=== PATIENT | male | born 1995 | race Caucasian/White ===

== ENCOUNTER 2022-10-15 05:52 | Observation (INO) | payer OTHER ==
[2022-10-13 12:22] VITALS: BMI 28.0
[2022-10-15 06:50] LABS: #Basophils 0.1 thou/uL (0.0-0.2); #Eosinphils 0.2 thou/uL (0.0-0.7); #Lymphocytes 3.3 thou/uL (1.20-3.40); #Neutrophils 2.5 thou/uL (1.40-6.50); %Basophils 0.7 % (0.0-1.0); %Eosinophils 2.2 % (0.0-10.0); %Lymphocytes 47.1 % (21.0-51.0); %Monocytes 14.2 % (0.0-10.0); %Neutrophils 35.7 % (42.0-75.0); Hemoglobin 16.1 g/dL (14.0-18.0); Mean Corpuscular HGB CONC 32.8 g/dL (32.0-36.0); Mean Corpuscular Hemoglobin 31.8 pg (27.0-31.0); Mean Corpuscular Volume 97.1 fl (78.0-98.0); Platelet Count 249 10x3/uL (130-400); RBC Distribution Width 11.1 % (11.5-14.5); Red Blood Cell (RBC) Count 5.08 mill/uL (4.70-6.10); White Blood Cell (WBC) Count 7.1 10x3/uL (4.8-10.8)
[2022-10-15] MEDS ORDERED: Midazolam HCl 2 mg/2 ml Vial ONE (06:57)
[2022-10-15] MEDS ORDERED: Lidocaine 1% (PF) 30 ML VIAL ONE (06:57)
[2022-10-15] MEDS ORDERED: Bupivacaine PF 0.5% 30 ML VIAL ONE (06:57)
[2022-10-15] MEDS ORDERED: FENTANYL 50 MCG/ML 1 ML VIAL ONE (06:57)
[2022-10-15 07:10] LABS: Anion Gap 10 mmol/L (10-20); BUN (Urea Nitrogen) 10 mg/dL (8.9-20.6); Calc. Creatinine Clearance 121 mL/min (70-130); Calcium 9.4 mg/dL (7.8-10.44); Carbon Dioxide 28 mmol/L (22-29); Chloride 105 mmol/L (98-107); Estimated GFR 93; Glucose 97 mg/dL (70-105); Potassium 3.6 mmol/L (3.5-5.1); Sodium 139 mmol/L (136-145)
[2022-10-15] MEDS ORDERED: Clindamycin/D5W 600 mg/50 ml Premix Bag ONE (07:16)
[2022-10-15] MEDS ORDERED: Bupivacaine HCl 0.5%/Epinephrine 1:200,000/PF 30 ml Vial ONE (07:20)
[2022-10-15 07:23] LABS: SARS-CoV-2 NAA Rapid Test Not Detected (NotDetected)
[2022-10-15] MEDS ORDERED: fentaNYL PF 100 MCG/2 ML SYRINGE ONE (07:34)
[2022-10-15] MEDS ORDERED: Fentanyl 100 MCG/2 ML VIAL SLOW IVP PRN (07:44)
[2022-10-15] MEDS ORDERED: Ropivacaine 0.2% 550 ML 550 ML NERVE BLCK SCH (07:45)
[2022-10-15] MEDS ORDERED: HYDROcodone/Acetaminophen 5/325 mg Tablet PO PRN (07:45)
[2022-10-15] MEDS ORDERED: Promethazine HCl 25 MG/ML VIAL IM PRN ×2 (07:45→08:31)
[2022-10-15] MEDS ORDERED: Ondansetron PF 4 MG/2 ML Vial IVP PRN (07:45)
[2022-10-15] MEDS ORDERED: traMADol HCl 50 MG TAB PO PRN ×2 (07:45)
[2022-10-15] MEDS ORDERED: Zolpidem Tartrate 5 MG TAB PO PRN (07:45)
[2022-10-15] MEDS ORDERED: Dexamethasone 20 MG/5 ML VIAL ONE (07:52)
[2022-10-15] MEDS ORDERED: Lidocaine 1% PF 5 ML VIAL ONE (07:52)
[2022-10-15] MEDS ORDERED: Ketorolac Tromethamine 30 MG/ML VIAL ONE (07:52)
[2022-10-15] MEDS ORDERED: PROPOFOL 200 MG/20 ML VIAL ONE (07:52)
[2022-10-15] MEDS ORDERED: Ondansetron PF 4 MG/2 ML Vial ONE ×2 (07:52→09:51)
[2022-10-15] MEDS ORDERED: HYDROmorphone 2 MG/ML VIAL SLOW IVP PRN (08:31)
[2022-10-15] MEDS ORDERED: Meperidine HCl/PF 25 MG/ML VIAL SLOW IVP PRN (08:31)
[2022-10-15] MEDS ORDERED: Fentanyl 100 MCG/2 ML VIAL ONE (09:51)
[2022-10-15] MEDS ORDERED: Milk Of Magnesia 30 ML UDCUP PO PRN (10:01)
[2022-10-15] MEDS ORDERED: Bisacodyl 10 MG SUPP PR PRN (10:01)
[2022-10-15] MEDS ORDERED: Methocarbamol 500 MG TAB PO PRN (10:01)
[2022-10-15] MEDS ORDERED: Acetaminophen 500 MG TAB PO PRN (10:01)
[2022-10-15] MEDS ORDERED: HYDROcodone/Acetaminophen 7.5/325 mg Tablet PO PRN ×2 (10:01)
[2022-10-15] MEDS ORDERED: diphenhydrAMINE 50 MG CAP PO PRN (10:01)
[2022-10-15] MEDS ORDERED: Promethazine HCl 25 MG/ML VIAL ONE (10:04)
[2022-10-15] MEDS ORDERED: HYDROmorphone 0.5 MG/0.5 ML SYRINGE ONE (10:16)
[2022-10-15] MEDS: HYDROcodone/Acetaminophen 5/325 mg Tablet PO PRN ×2 (13:09→20:51)
[2022-10-15] MEDS: Ketorolac Tromethamine 30 MG/ML VIAL IVP SCH ×3 (13:09→23:39)
[2022-10-15] MEDS: Dextrose 5 %-0.45 % NaCl 1,000 ML IV SCH ×2 (13:10→20:50)
[2022-10-15] MEDS: Clindamycin/D5W 900 MG in Premix Bag 1 BAG IVPB SCH ×2 (14:30→20:49)
[2022-10-15] MEDS: Famotidine 20 MG TAB PO SCH (20:50)
[2022-10-16 03:46] VITALS: TEMP 97.6
[2022-10-16] MEDS: Dextrose 5 %-0.45 % NaCl 1,000 ML IV SCH (06:32)
[2022-10-16] MEDS: Ketorolac Tromethamine 30 MG/ML VIAL IVP SCH (06:37)
[2022-10-16 08:58] VITALS: BP 144/68
[2022-10-16] MEDS: Famotidine 20 MG TAB PO SCH (08:59)
== END 2022-10-16 11:38 | disposition home or self-care (01) ==
LOC: SDC 05:52 → SURG A 09:58
PROVIDERS: ADMIT Orthopaedic Surgery; ATTEND Orthopaedic Surgery
PROC: 0MQP4ZZ Repair Left Knee Bursa and Ligament, Percutaneous Endoscopic Approach (ICD-10-PCS; principal; 2022-10-15)
DX: S83.512A Sprain of anterior cruciate ligament of left knee, initial encounter (principal); S83.282A Other tear of lateral meniscus, current injury, left knee, initial encounter; Z79.1 Long term (current) use of non-steroidal anti-inflammatories (NSAID); Z88.0 Allergy status to penicillin; Z88.2 Allergy status to sulfonamides; Z20.822 Contact with and (suspected) exposure to COVID-19; X50.1XXA Overexertion from prolonged static or awkward postures, initial encounter; Y93.67 Activity, basketball
CPT/HCPCS: 80048; 85025; 96365; 96375; 96376; A4306; C1713; G0378; J1100; J1170; J1885; J2001; J2250; J2405; J2550; J2704; J2795; J3010; J3490; J7042; S0020; U0002